=== PATIENT | male | born 1990 | race Two or more races ===

== ENCOUNTER 2016-11-26 13:31 | Emergency (ER) | payer OTHER ==
[~2016-11-26] VITALS: Ht 165.1 cm; Wt 95.3 kg
--- NOTE | 2016-11-26 14:36 | Emergency Room Report ---
History of Present Illness General Chief Complaint: Multiple Trauma/Fall Source: Patient (RADHA KOENIG P.A.) Present Illness HPI 26 y/o male c/o right ankle injury x 1 hour ago. States he was at work when his right foot got stuck while going down the stairs causing him to loose his footing and fall down. States his right foot / ankle has 6/10 pain and loss of ROM d/t trauma. Denies any serious previous injuries to foot / ankle. Denies taking any medications. Patient denies any numbness, tingling, pressure, paralysis, cyanosis, bruising, or loss of sensation. (RADHA KOENIG P.A.) Allergies: Coded Allergies: No Known Allergies (Unverified , 11/26/16) Patient History Past Medical History: see triage record Pertinent Family History: none Immunizations: UTD Reviewed Nursing Documentation: PMH: Agreed, PSxH: Agreed (RADHA KOENIG P.A.) Nursing Documentation-PMH Past Medical History: No Stated History (RADHA KOENIG P.A.) Review of Systems All Other Systems: negative except mentioned in HPI (RADHA KOENIG P.A.) Physical Exam Vital Signs Date Time Temp Pulse Resp B/P Pulse Ox O2 Delivery O2 Flow Rate FiO2 11/26/16 13:48 98.2 136/80 Sp02 EP Interpretation: reviewed General Appearance: no apparent distress, alert, GCS 15, non-toxic Head: normocephalic, atraumatic Musculoskeletal: back normal, decreased range of motion - due to dislocation, other - foot appears with obvious deformity, tender - Right medial and lateral ankle Neurologic: alert, oriented x3, responsive, motor strength/tone normal, sensory intact, speech normal Skin: normal color, no rash, warm/dry, well hydrated (PASCUALROBERTRADHA P.A.) Procedures Joint Reduction Joint Reduction : Consent: Verbal Joint Reduction Site: other - right ankle Procedural Sedation: No Reduction Attempts: One Pre-Procedure NV Exam: Yes Post-Procedure NV Exam: Yes Post Joint Reduction Film: Patient has angulated displaced fibular fracture Patient Tolerated: Well Complications: None Progress Anesthesia was obtain with hematoma block using 10cc of 1% lidocaine w/o EPI. + CMS before and after procedure. The foot and ankle was then splinted with short leg and stirrup. +CMS. Post reduction films show good alignment of the ankle with better alignment of the fibula. (RADHA KOENIG) Medical Decision Making PA Attestation Dr. Sultana is my supervising physician with whom patient management has been discussed with. (RADHA KOENIG) Diagnostic Impression: Primary Impression: Dislocation of ankle, right, closed Qualified Codes: S93.04XA - Dislocation of right ankle joint, initial encounter Additional Impression: Fracture of shaft of fibula Qualified Codes: S82.401A - Unspecified fracture of shaft of right fibula, initial encounter for closed fracture ER Course Pt. presents to the ED c/o right ankle injury Ddx considered but are not limited to fracture, dislocation, contusion, sprain Vital signs: are WNL, pt. is afebrile H&PE are most consistent with Right ankle dislocation and fibular fracture ORDERS: XR Pre and Post reduction of foot, ankle and tib/fib, hematoma block, Percocet ED INTERVENTIONS: Closed reduction of right ankle dislocation and fibular fracture. DISCHARGE: At this time pt. is stable for d/c to home. Will provide printed patient care instructions, and any necessary prescriptions. Care plan and follow up instructions have been discussed with the patient prior to discharge. (RADAH [email or web address].Cj) ER Course I evaluated this patient in the ED at [facility] with my advanced practice provider ([employer]) colleague, who practices under my general supervision. My impressions concur with the advanced practice provider in regards to their obtained history of present illness, physical exam, general management, diagnosis, and disposition. In particular, I agree with PA-obtained interpretation of imaging, rhythm strip. For the evening and overnight shifts, we do not have the benefit of an in-house Radiologist to review xrays so our interpretation may be limited. Patients are to be discharged only with normal vital signs (or if we discussed a particular exception), a plan for follow-up care, and understand to return to the ED for worsening symptoms. Please see midlevel healthcare providers note for further details. (JASKARAN SULTANA M.D.) Other X-Ray Diagnostic Results Other X-Ray Diagnostic Results : Date: Nov 26, 2016 Number of Views: other - multiple over 3 different orders Other Impression anterior and lateral dislocation of the tibiotalar joint, by about one bone width, without definite evidence of tibial or talar fracture. There is an angulated comminuted fracture of the distal fibular shaft. Status post closed reduction of previously demonstrated right ankle fracture dislocation, with successful reduction of the tibiotalar joint, improved alignment of distal fibular fracture. (RADHA KOENIG P.A.) Last Vital Signs Date Time Temp Pulse Resp B/P Pulse Ox O2 Delivery O2 Flow Rate FiO2 11/26/16 13:48 98.2 136/80 (RADHA KOENIG P.A.) Disposition: HOME, SELF-CARE Condition: Improved Scripts Ibuprofen* (MOTRIN*) 600 Mg Tablet 600 MG ORAL THREE TIMES A DAY, #30 TAB 0 Refills Prov: RADHA KOENIG.ACasimiro 11/26/16 Acetaminophen With Codeine (T#4) (TYLENOL #4 TAB*) Y Tab 1 TAB ORAL Q8H Y for For Pain, #12 TAB 0 Refills Prov: RADHA KOENIG.ACasimiro 11/26/16 RADHA KOENIG Nov 26, 2016 14:36 JASKARAN SULTANA M.D. Nov 29, 2016 14:18
[2016-11-26] MEDS ORDERED: Lidocaine 1% MPF 10mg/ml 5ml INJ ONE (15:30)
[2016-11-26 16:24] VITALS: BP 131/78
--- NOTE | 2016-11-26 16:45 | Diagnostic Imaging Report ---
Indication: PAIN Technique: 3 views of the right ankle Comparison: 90 minutes earlier Findings: There is improved alignment of the tibiotalar joint, which is now reduced. Again demonstrated is a comminuted fracture of the distal fibula, alignment of which is likewise improved. Overlying plaster splint obscures bony detail Impression: Status post closed reduction of previously demonstrated right ankle fracture dislocation, with successful reduction of the tibiotalar joint, improved alignment of distal fibular fracture.
--- NOTE | 2016-11-26 16:53 | Diagnostic Imaging Report ---
Indication: Trauma Technique: 3 views of the right ankle Comparison: none Findings: There is anterior and lateral dislocation of the tibiotalar joint, by about one bone width, without definite evidence of tibial or talar fracture. There is an angulated comminuted fracture of the distal fibular shaft. Impression: Right ankle fracture dislocation, as described
[2016-11-26] MEDS ORDERED: IBUPROFEN600 MG ORAL (19:10)
[2016-11-26] MEDS ORDERED: ACETAMINOPHEN-1 EAC2 ORAL (19:10)
[2016-11-26 19:26] VITALS: BP 127/80
--- NOTE | 2016-11-27 10:47 | Diagnostic Imaging Report ---
Indication: PAIN Technique: 2 views of the tibia and fibula Comparison: Ankle radiograph of one and one half hours earlier. Findings: Again demonstrated is a plaster splint. This may obscure bony detail. As compared to the earlier study, there is interval slight widening of the medial ankle mortise, may indicate mild recurrent subluxation distal fibular fracture is again noted. No more proximal injury demonstrated Impression: Reduced complex ankle fracture/dislocation in plaster, as described
--- NOTE | 2016-11-27 16:17 | Diagnostic Imaging Report ---
Indication: Trauma Technique: 3 views right foot Comparison: none Findings: There is a complex fracture dislocation of the ankle, described on ankle radiograph report. No acute foot fracture. No dislocations. There is equivocal mild degenerative change of the first metatarsal phalangeal joint. 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 Impression: Complex ankle fracture dislocation-please refer to ankle radiograph report No acute foot injury
== END 2016-11-26 19:26 | disposition home or self-care (01) ==
LOC: EMR 17:17
DX: S93.04XA Dislocation of right ankle joint, initial encounter (principal); W10.9XXA Fall (on) (from) unspecified stairs and steps, initial encounter; Y92.89 Other specified places as the place of occurrence of the external cause
CPT/HCPCS: 29515; 99284